=== PATIENT | female | born 1995 | race Two or more races ===

== ENCOUNTER 2018-01-13 16:07 | Emergency (ER) | payer OTHER ==
[~2018-01-13] VITALS: Ht 167.6 cm; Wt 78.5 kg
[~2018-01-13 16:07] MED LIST: METRONIDAZOLE500 MG PO; TRI-ESTARYLLA1 EACH PO; ULTRAM50 MG PO; ZOFRAN ODT4 MG PO
[2018-01-13 18:13] LABS: HEMATOCRIT 40.5 % (36.0-46.0); HEMOGLOBIN 13.8 G/DL (11.9-15.5); MCH 29.9 PG (29.0-34.0); MCHC 34.1 G/DL (30.0-36.0); MCV 87.9 FL (83-99); PLATELET COUNT 278 K/uL (156-360); RBC DIS.WIDTH-CV 12.5 % (11.8-14.6); RBC DIS.WIDTH-SD 39.8 % (39-53); RED BLOOD COUNT 4.61 M/uL (3.80-5.20); WHITE BLOOD COUNT 8.5 K/uL (4.1-10.2)
[2018-01-13 18:14] LABS: APPEARANCE SL.HAZY ((CLEAR)); BILIRUBIN NEGATIVE; BLOOD NEGATIVE; COLOR AMBER ((YELLOW)); GLUCOSE (STRIP) NEGATIVE; KETONES 80; LEUKOCYTES NEGATIVE; NITRITE NEGATIVE; PROTEIN (STRIP) 30; SPECIFIC GRAVITY 1.032 (1.000-1.030)
[2018-01-13 18:32] LABS: CHLORIDE 105 mEq/L (99-109); POTASSIUM 3.5 mEq/L (3.7-5.4); SODIUM 138 mEq/L (136-147)
[2018-01-13 18:34] LABS: GLUCOSE 78 mg/dL (70-99)
[2018-01-13 18:38] LABS: CREATININE 0.7 mg/dL (0.6-1.3); GFR ESTIMATE (CALCULATED) > 59 mL/min/
[2018-01-13 18:38] LABS: BACTERIA 2+ /HPF; EPITHELIAL CELLS 1+ /HPF; MUCUS NONE SEEN /LPF; RED BLOOD CELLS NONE SEEN /HPF (0-5); WHITE BLOOD CELLS NONE SEEN /HPF (0-5)
[2018-01-13 18:39] LABS: UREA NITROGEN (BUN) 8 mg/dL (9-23)
[2018-01-13] MEDS ORDERED: ZOFRAN ODT4 MG PO (18:45)
[2018-01-13] MEDS ORDERED: KEFLEX500 MG PO (18:45)
[2018-01-13 18:52] VITALS: BP 123/70
== END 2018-01-13 18:55 | disposition home or self-care (01) ==
LOC: EME 16:07
PROVIDERS: Nurse Practitioner Family
DX: O21.0 Mild hyperemesis gravidarum (principal); O23.41 Unspecified infection of urinary tract in pregnancy, first trimester; R19.7 Diarrhea, unspecified; Z87.891 Personal history of nicotine dependence; Z3A.01 Less than 8 weeks gestation of pregnancy
CPT/HCPCS: 80048; 81003; 85027; 87086; 99281; 99284

== ENCOUNTER 2018-03-27 07:57 | Emergency (ER) | payer OTHER ==
[~2018-03-27] VITALS: Ht 167.6 cm; Wt 82.3 kg
[~2018-03-27 07:57] MED LIST changes: +KEFLEX500 MG PO
[2018-03-27 09:25] LABS: APPEARANCE CLOUDY ((CLEAR)); BILIRUBIN NEGATIVE; BLOOD NEGATIVE; COLOR YELLOW ((YELLOW)); GLUCOSE (STRIP) NEGATIVE; KETONES NEGATIVE; LEUKOCYTES LARGE; NITRITE NEGATIVE; PROTEIN (STRIP) NEGATIVE; SPECIFIC GRAVITY 1.013 (1.000-1.030); UROBILINOGEN 0.2 MG/DL (0.2-1.0)
[2018-03-27 09:39] LABS: HEMATOCRIT 32.3 % (36.0-46.0); HEMOGLOBIN 10.9 G/DL (11.9-15.5); MCH 30.9 PG (29.0-34.0); MCHC 33.7 G/DL (30.0-36.0); MCV 91.5 FL (83-99); PLATELET COUNT 248 K/uL (156-360); RBC DIS.WIDTH-CV 13.5 % (11.8-14.6); RBC DIS.WIDTH-SD 45.4 % (39-53); RED BLOOD COUNT 3.53 M/uL (3.80-5.20); WHITE BLOOD COUNT 7.7 K/uL (4.1-10.2)
[2018-03-27 09:40] LABS: RED BLOOD CELLS NONE SEEN /HPF (0-5)
[2018-03-27 09:41] LABS: BACTERIA 2+ /HPF; EPITHELIAL CELLS 2+ /HPF; MUCUS 1+ /LPF; UCUL ADDED? YES
[2018-03-27 09:42] LABS: AMORPHOUS PHOSPHATE CRYSTALS 2+
[2018-03-27 09:50] LABS: ALBUMIN 3.4 g/dL (3.2-4.8); CHLORIDE 107 mEq/L (99-109); POTASSIUM 4.1 mEq/L (3.7-5.4); SODIUM 138 mEq/L (136-147)
[2018-03-27 09:52] LABS: GLUCOSE 79 mg/dL (70-99); TOTAL PROTEIN 5.8 g/dL (6.4-8.3)
[2018-03-27 09:54] LABS: TOTAL BILIRUBIN 0.3 mg/dL (0.0-1.0)
[2018-03-27 09:56] LABS: ALKALINE PHOSPHATASE 52 IU/L (3-129); CREATININE 0.6 mg/dL (0.6-1.3); GFR ESTIMATE (CALCULATED) > 59 mL/min/
[2018-03-27 09:57] LABS: UREA NITROGEN (BUN) 7 mg/dL (9-23)
[2018-03-27 09:58] LABS: AST (GOT) 19 IU/L (2-34)
[2018-03-27 09:59] LABS: ALT (GPT) 19 IU/L (3-49); LIPASE 15 U/L (1.0-51.0)
[2018-03-27 10:23] LABS: QUANTITATIVE HCG 22420.6 MIU/ML
[2018-03-27] MEDS ORDERED: KEFLEX500 MG PO (10:30)
[2018-03-27] MEDS ORDERED: LIDODERM 5% P1 PATCH TD (10:41)
[2018-03-27 10:47] VITALS: BP 102/65
== END 2018-03-27 10:47 | disposition home or self-care (01) ==
LOC: EME 07:57
PROVIDERS: Nurse Practitioner Family
DX: O23.12 Infections of bladder in pregnancy, second trimester (principal); O9A.212 Injury, poisoning and certain other consequences of external causes complicating pregnancy, second trimester; S39.012A Strain of muscle, fascia and tendon of lower back, initial encounter; Z3A.17 17 weeks gestation of pregnancy; X58.XXXA Exposure to other specified factors, initial encounter; R10.9 Unspecified abdominal pain; H92.01 Otalgia, right ear; Z87.891 Personal history of nicotine dependence
CPT/HCPCS: 76705; 80053; 81003; 83690; 84702; 85027; 87086; 99281; 99284